=== PATIENT | male | born 1985 | race Caucasian/White ===

== ENCOUNTER 2021-11-27 05:32 | Emergency (ER) | payer OTHER ==
[2021-11-27 05:52] LABS: BASOPHIL 0.5 % (0-2); EOSINOPHIL 1.3 % (0-5); HCT 44.7 % (42.0-52.0); HGB 15.6 g/dl (13.2-18.0); LYMPHOCYTE 22.7 % (15-48); MCH 30.1 pg (25.0-31.0); MCHC 34.9 g/dL (32.0-36.0); MCV 86.3 fL (78.0-100.0); MONOCYTE 6.2 % (0-12); MPV 10.2 fL (6.0-9.5); NEUTROPHIL 68.7 % (41-80); NRBC 0; PLT 223 K/uL (150-400); RBC 5.18 M/uL (4.70-6.00); WBC 9.6 K/uL (4.0-10.5)
[2021-11-27 06:12] LABS: BILIRUBIN NEGATIVE (NEGATIVE); BLOOD 3+ Ery/uL (NEGATIVE); CLARITY CLEAR (CLEAR); COLOR YELLOW (YELLOW); GLUCOSE (U) NORMAL (NORMAL); LEUKOCYTES NEGATIVE Leu/uL (NEGATIVE); NITRITE NEGATIVE (NEGATIVE); PROTEIN NEGATIVE (NEGATIVE); SPECIFIC GRAVITY 1.025 (1.001-1.030); UROBILINOGEN 0.2 mg/dL (0.2-1.0); pH 5.5 (5.0-9.0)
[2021-11-27 06:15] LABS: ALBUMIN 3.7 g/dL (3.4-5.0); BILIRUBIN - TOTAL 0.4 mg/dL (0.2-1.0); CREATININE 0.94 mg/dL (0.67-1.17); GLOBULIN (CALCULATION) 3.6 g/dL; POTASSIUM 3.7 mmol/L (3.5-5.1); TOTAL PROTEIN 7.3 g/dL (6.4-8.2)
[2021-11-27 06:26] LABS: BACTERIA TRACE; MUCOUS TRACE; URINARY RBC TNTC
[2021-11-27] MEDS ORDERED: NORCO 5-325 TA1 EACH PO (06:52)
[2021-11-27] MEDS ORDERED: ONDANSETRON ODT4 MG PO (06:52)
[2021-11-27] MEDS ORDERED: FLOMAX0.4 MG PO (06:53)
== END 2021-11-27 08:45 | disposition home or self-care (01) ==
LOC: FER 05:32
PROVIDERS: Emergency Medicine
DX: N13.2 Hydronephrosis with renal and ureteral calculous obstruction (principal)
CPT/HCPCS: 36415; 80053; 81001; 85025; 87088; J1885; J2405; J7030